=== PATIENT | male | born 1995 | race Caucasian/White ===

== ENCOUNTER 2018-02-18 00:41 | Emergency (ER) | payer SELFPAY ==
[~2018-02-18] VITALS: Wt 120.5 kg
[2018-02-18 00:43] VITALS: TEMP 98.1
[2018-02-18 01:12] LABS: COLLECTION METHOD CLEAN CATCH
[2018-02-18 01:25] LABS: BASO # 0.1 (0.0-0.2); BASO % 0.7 % (0.0-2.0); EOS # 0.1 (0.0-0.7); EOS % 0.8 % (0-4.0); GRAN # 7.1 (1.4-6.5); GRAN % 66.8 % (42.2-75.2); HEMOGLOBIN 14.4 g/dl (13.5-18.0); LYMPH # 2.6 (1.2-3.4); LYMPH % 24.9 % (20.0-51.0); MEAN CELL VOLUME 82 fl (80.0-100.0); MEAN CORPUSCULAR HEMOGLOBIN 28 pg (27.0-31.0); MEAN CORPUSCULAR HGB CONC 34 g/dl (33.0-37.0); MEAN PLATELET VOLUME 8.8 fl (7.4-10.4); MONO # 0.7 (0.1-0.6); MONO % 6.5 % (1.7-9.3); PLATELET COUNT 319 K/mm3 (130-400); RED BLOOD COUNT 5.22 M/mm3 (4.20-5.60); REDCELL DISTRIBUTION WIDTH-CV 13.8 % (11.5-14.5)
[2018-02-18 01:30] LABS: MUCOUS Present /lpf; PH 5 (5-8); SQUAMOUS EPITHELIAL 0-2 /hpf; URINE APPEARANCE Cloudy; URINE BACTERIA Rare /hpf; URINE BILIRUBIN Negative (NEGATIVE); URINE BLOOD Negative (NEGATIVE); URINE COLOR Yellow; URINE GLUCOSE Negative (NEGATIVE); URINE KETONE Negative (NEGATIVE); URINE LEUKOCYTE ESTERASE Negative (NEGATIVE); URINE NITRATE Negative (NEGATIVE); URINE PROTEIN(semi-quant) Negative (NEGATIVE); URINE RBC 0-2 /hpf; URINE UROBILINOGEN Negative (NEGATIVE)
[2018-02-18 01:33] LABS: TRICYCLIC ANTIDEPRESS URINE NEGATIVE
[2018-02-18 01:36] LABS: ALANINE AMINOTRANSFERASE 38 U/L (21-72); ALBUMIN 4.3 gm/dL (3.5-5.0); ALKALINE PHOSPHATASE 66 U/L (50-136); ANION GAP 14 mmol/L (7-16); AST,SGOT 26 U/L (15-37); BILIRUBIN,TOTAL 0.3 mg/dL (0.0-1.0); BLOOD UREA NITROGEN 18 mg/dL (9-20); CALCIUM 9.2 mg/dL (8.4-10.2); CARBON DIOXIDE 26 mmol/L (22-30); CHLORIDE 100 mmol/L (98-107); CREATININE, serum 1.01 mg/dL (0.66-1.25); GLUCOSE 107 mg/dL (74-106); POTASSIUM 3.8 mmol/L (3.4-5.0); SODIUM 139 mmol/L (137-145); TOTAL PROTEIN 7.4 gm/dL (6.4-8.2)
[2018-02-18 01:48] LABS: ACETAMINOPHEN < 10 ug/mL (10-30); ALCOHOL(ethanol),MEDICAL < 10 mg/dL; SALICYLATE < 1.0 mg/dL
[2018-02-18 03:18] VITALS: BP 120/87; PULSE 96
== END 2018-02-18 03:15 | disposition home or self-care (01) ==
LOC: COL.ER 00:41
PROVIDERS: Nurse Practitioner
DX: F32.9 Major depressive disorder, single episode, unspecified (principal); Z88.2 Allergy status to sulfonamides; Z98.818 Other dental procedure status

== ENCOUNTER 2019-06-25 11:46 | Emergency (ER) | payer SELFPAY ==
[~2019-06-25] VITALS: Ht 177.8 cm; Wt 121.4 kg
[2019-06-25 12:02] VITALS: BP 136/80; TEMP 99.1
[2019-06-25 12:54] VITALS: PULSE 105
== END 2019-06-25 12:59 | disposition home or self-care (01) ==
LOC: COL.ER 11:46
DX: S39.012A Strain of muscle, fascia and tendon of lower back, initial encounter (principal); S89.92XA Unspecified injury of left lower leg, initial encounter; W10.9XXA Fall (on) (from) unspecified stairs and steps, initial encounter; Y92.009 Unspecified place in unspecified non-institutional (private) residence as the place of occurrence of the external cause